=== PATIENT | male | born 1980 ===

== ENCOUNTER 2017-11-24 22:39 | Emergency (ER) | payer MEDICAID, OTHER ==
[2017-11-24 22:46] VITALS: PULSE 82; TEMP 98.2
[2017-11-24 23:40] LABS: BARBITURATES, UR NEGATIVE (NEGATIVE); BENZODIAZEPINES, UR NEGATIVE (NEGATIVE); OPIATES, UR NEGATIVE (NEGATIVE); PHENCYCLIDINE, UR NEGATIVE (NEGATIVE)
--- NOTE | 2017-11-25 00:52 | ED PDOC ---
HPI: Psych/Substance Abuse Time Seen by Provider: 11/24/17 22:50 Chief Complaint (Nursing): Alcohol Ingestion Chief Complaint (Provider): etoh intoxication ED Caveat: Intoxicated History Per: Patient History/Exam Limitations: intoxication Onset/Duration Of Symptoms: Unknown (because he is an unreliable historian) Additional History Per: Friend Additional Complaint(s): 37 yo male, in company of a friend, presents to the ED complaining of alcohol intoxication, onset unknown. Patient's friend quotes, "he passed out for 30 seconds after drinking alcohol". Patient's history and review of systems are limited secondary to the patient not being reliable historian because of his intoxication. Of note, patient has been seen in this ED for alcohol intoxication in the past. Past Medical History Reviewed: Historical Data, Nursing Documentation, Vital Signs, Unable To Obtain (patient is not a reliable historian) Vital Signs: Last Vital Signs Temp 98.2 F 11/24/17 22:41 Pulse 82 11/24/17 22:41 Resp 19 11/24/17 22:41 BP 142/79 11/24/17 22:41 Pulse Ox 99 11/24/17 22:41 - Family History Family History: States: Unknown Family Hx - Social History Ex-Smoker (has not smoked in the last 12 months): No - Allergies Allergies/Adverse Reactions: Allergies Allergy/AdvReac Type Severity Reaction Status Date / Time No Known Allergies Allergy Verified 06/27/15 04:18 Review of Systems ROS Statement: Except As Marked, All Systems Reviewed And Found Negative Review Of Systems: ROS cannot be obtained secondary to pt's inabilty to answer questions. (patient is intoxicated and not a reliable historian) Physical Exam - Reviewed Nursing Documentation Reviewed: Yes Vital Signs Reviewed: Yes - Physical Exam Appears: Positive for: Well, Non-toxic, No Acute Distress Head Exam: Positive for: ATRAUMATIC, NORMAL INSPECTION, NORMOCEPHALIC Skin: Positive for: Normal Color, Warm, DRY Eye Exam: Positive for: EOMI, Normal appearance, PERRL ENT: Positive for: Normal ENT Inspection Neck: Positive for: Normal, Painless ROM Cardiovascular/Chest: Positive for: Regular Rate, Rhythm. Negative for: Murmur Respiratory: Positive for: Normal Breath Sounds. Negative for: Respiratory Distress Gastrointestinal/Abdominal: Positive for: Normal Exam, Soft. Negative for: Tenderness Back: Positive for: Normal Inspection Extremity: Positive for: Normal ROM. Negative for: Pedal Edema, Deformity Neurologic/Psych: Positive for: Other (slurred speech). Negative for: Alert ( easily aroused), Oriented (oriented to person) - ECG O2 Sat by Pulse Oximetry: 99 (RA) Pulse Ox Interpretation: Normal Medical Decision Making Medical Decision Making: Time: --22:51 Impression: --37 yo male with alcohol intoxication Plan: --Accucheck Reassess --Labs reviewed and show an alcohol level of 43. Patient is Cannabis positive --00:30 patient reports of improvement of symptoms and is stable for discharge. Scribe Attestation: Documented by Darrian Claros acting as a scribe for Zan Pierce MD. Provider Attestation: All medical record entries made by the Scribe were at my direction and personally dictated by me. I have reviewed the chart and agree that the record accurately reflects my personal performance of the history, physical exam, medical decision making, and the department course for this patient. I have also personally directed, reviewed, and agree with the discharge instructions and disposition. Disposition - Clinical Impression Clinical Impression: Alcohol use, Cannabis abuse - Patient ED Disposition Is Patient to be Admitted: No - Disposition Disposition: Routine/Home Disposition Time: 00:30 Condition: IMPROVED Instructions: Alcohol Use - When Is Drinking a Problem?, Marijuana Use and Addiction Forms: [employer] (Serbian)
[2017-11-25 03:05] VITALS: BP 138/76; RESP 16
[2017-11-25 04:30] VITALS: O2SAT 99
== END 2017-11-25 03:06 | disposition home or self-care (01) ==
LOC: H.ER 22:39
DX: F10.129 Alcohol abuse with intoxication, unspecified (principal); F12.10 Cannabis abuse, uncomplicated

== ENCOUNTER 2017-12-22 12:20 | Inpatient (IN) | payer MEDICAID, SELFPAY ==
--- NOTE | 2017-12-22 13:09 | ED PDOC ---
HPI: Psych/Substance Abuse Time Seen by Provider: 12/22/17 12:45 Chief Complaint (Nursing): Psychiatric Evaluation Chief Complaint (Provider): Psychiatric Evaluation History Per: Patient History/Exam Limitations: no limitations Current Symptoms Are (Timing): Still Present Additional Complaint(s): 37 year old male presents to the emergency department for a psychiatric evaluation after experiencing suicidal and homicidal thoughts without a plan or intent. Patient has a long history of depression and has not taken any psychiatric medications since 2004. Denies any auditory hallucinations. Otherwise: (-) trauma, (-) fever, (-)headache, (-) dyspnea, (-) vomiting. Past Medical History Reviewed: Historical Data, Nursing Documentation, Vital Signs Vital Signs: Last Vital Signs Temp 97.7 F 12/22/17 12:26 Pulse 77 12/22/17 12:26 Resp 18 12/22/17 12:26 BP 109/73 12/22/17 12:26 Pulse Ox 100 12/22/17 12:26 - Medical History PMH: Depression - Family History Family History: States: Unknown Family Hx - Social History Current smoker - smoking cessation education provided: No Alcohol: Other Drugs: Denies - Allergies Allergies/Adverse Reactions: Allergies Allergy/AdvReac Type Severity Reaction Status Date / Time No Known Allergies Allergy Verified 06/27/15 04:18 Review of Systems ROS Statement: Except As Marked, All Systems Reviewed And Found Negative (As per HPI, otherwise negative) Psych: Positive for: Depression, Suicidal ideation (Homicidal). Negative for: Other (Auditory hallucinations) Physical Exam - Reviewed Nursing Documentation Reviewed: Yes Vital Signs Reviewed: Yes - Physical Exam Appears: Positive for: No Acute Distress Head Exam: Positive for: NORMAL INSPECTION (No scalp swelling or tenderness) Skin: Positive for: Warm, Dry. Negative for: Cyanosis Eye Exam: Positive for: Normal appearance, EOMI, PERRL. Negative for: Nystagmus , Scleral icterus, Other (conjunctival pallor) ENT: Positive for: Normal ENT Inspection (Mucous membranes moist) Neck: Positive for: Normal, Supple. Negative for: Pain On Movement Of Neck ( stiffness) Respiratory: Positive for: Normal Breath Sounds (Breaths sounds are equal). Negative for: Rales, Rhonchi, Stridor, Wheezing Gastrointestinal/Abdominal: Positive for: Normal Exam, Soft. Negative for: Tenderness, Distended, Guarding Lymphatic: Positive for: Normal Exam. Negative for: Adenopathy Neurologic/Psych: Positive for: Alert, cosmetologist II-XII (Intact), Oriented (x3), Mood/ Affect (Calm and cooperative) - Laboratory Results Result Diagrams: 12/22/17 14:16 12/22/17 14:16 - ECG O2 Sat by Pulse Oximetry: 100 (RA) Pulse Ox Interpretation: Normal Medical Decision Making Medical Decision Making: Time: 1245 Initial impression: Depression Initial plan: --Alcohol serum --CMP --Drug Screen, Urine --CBC w/ diff --Urinalysis --Reevaluation Time: 1345 --1:1 OBS for suicide precaution Labs reviewed and are wnl. Patient is medically cleared for crisis evaluation. Patient is seen and evaluated by crisis. As per crisis evaluation, decision made for inpatient admission for depression as per Dr. Joaquin. Scribe Attestation: Documented by Carol Sigala, acting as a scribe for Salina Mejia PA-C Provider Scribe Attestation: All medical record entries made by the Scribe were at my direction and personally dictated by me. I have reviewed the chart and agree that the record accurately reflects my personal performance of the history, physical exam, medical decision making, and the department course for this patient. I have also personally directed, reviewed, and agree with the discharge instructions and disposition. Disposition - Clinical Impression Clinical Impression: Depression - Patient ED Disposition Is Patient to be Admitted: Yes Counseled Patient/Family Regarding: Studies Performed, Diagnosis - Disposition Disposition Time: 17:00 Condition: STABLE Forms: [employer] (Azerbaijani) - PA / FILTER FILLER / Resident Statement MD/DO has reviewed & agrees with the documentation as recorded.
[2017-12-22 14:24] LABS: BASO % 0.7 % (0.0-2.0); EOS # 0.1 K/uL (0.0-0.7); EOS % 2.2 % (0.0-4.0); HEMOGLOBIN 15.4 g/dL (12.0-18.0); LYMPH # 1.4 K/uL (1.0-4.3); LYMPH % 27.5 % (20.0-40.0); MEAN CELL VOLUME 89.1 fl (80.0-94.0); MEAN CORPUSCULAR HEMOGLOBIN 29.2 pg (27.0-31.0); MEAN CORPUSCULAR HGB CONC 32.8 g/dL (33.0-37.0); MEAN PLATELET VOLUME 10.2 fl (7.2-11.7); MONO # 0.7 K/uL (0.0-0.8); MONO % 12.7 % (0.0-10.0); NEUT % 56.9 % (50.0-75.0); NRBC % 0.1 % (0.0-0.0); RBC 5.27 Mil/uL (4.40-5.90); RED CELL DISTRIBUTION WIDTH 13.8 % (11.5-14.5); WHITE BLOOD COUNT 5.2 K/uL (4.8-10.8)
[2017-12-22 14:37] LABS: ALB/GLOB RATIO 1.1 (1.0-2.1); ALBUMIN 4.4 g/dL (3.5-5.0); ALT/SGPT 36 U/L (21-72); AST/SGOT 31 U/L (17-59); BLOOD UREA NITROGEN 16 mg/dl (9-20); CALCIUM 9.4 mg/dL (8.4-10.2); GFR AFRICAN-AMERICAN > 60; GFR NON-AFRICAN AMERICAN > 60; URINE BILIRUBIN NEGATIVE (NEGATIVE); URINE BLOOD NEGATIVE (NEGATIVE); URINE CLARITY SLIGHTY-CLOUDY (Clear); URINE COLOR YELLOW (YELLOW); URINE GLUCOSE (UA) NEG (Normal); URINE LEUKOCYTE ESTERASE NEG Leu/uL (Negative); URINE PROTEIN 30 mg/dL (NEGATIVE)
[2017-12-22 14:43] LABS: BARBITURATES, UR NEGATIVE (NEGATIVE); BENZODIAZEPINES, UR NEGATIVE (NEGATIVE); OPIATES, UR NEGATIVE (NEGATIVE); PHENCYCLIDINE, UR NEGATIVE (NEGATIVE)
[2017-12-22] MEDS ORDERED: Divalproex 250 mg DR(BID formulation) PO ONE (19:16)
[2017-12-22] MEDS ORDERED: Magnesium Hydroxide Susp 30 ml UD PO PRN (20:03)
[2017-12-22] MEDS ORDERED: Alum-Mag Hydrox-Simethicone Susp (30 mL) PO PRN (20:03)
[2017-12-22] MEDS ORDERED: DiphenhydrAMINE 50 mg/ml Inj IM PRN (20:03)
[2017-12-22 21:58] VITALS: O2SAT 18
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
[2017-12-23] MEDS ORDERED: Divalproex 250 mg DR(BID formulation) PO SCH (09:00)
[2017-12-23 11:00] LABS: T4 6.76 ug/dl (5.5-11.0)
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
[2017-12-23] MEDS: Divalproex 500 mg DR(BID formulation) PO SCH ×2 (18:22→21:25)
[2017-12-24] MEDS: Divalproex 500 mg DR(BID formulation) PO SCH ×2 (08:42→17:56)
[2017-12-24 09:07] VITALS: RESP 18
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
[2017-12-25] MEDS: Divalproex 500 mg DR(BID formulation) PO SCH (09:09)
--- NOTE | 2017-12-25 13:38 | PCM.PYCHPN ---
Psychiatric Progress Note - Psychiatric Progress Note Patient seen today, length of contact: chart reviewed case discussed with team Patient Chief Complaint: I have been irritable and paranoid Problems Identified/Issues Discussed: pt evaluated with treatment team, reported feeling calmer and less angry since he was started on the depakote, pt also having insight into the fact that he was paranoid towards staff members,discussed with him the possible contribution of cannabis to the paranoid delusions also discussed with pt the need to be linked to anger management therapy pt denied any current side effects of risperidone or depakote, compliant with treatment advised to attend groups, pt denied any current suicidal or homicidal ideations denied command hallucinations DSM 5 Symptoms Update: antisocial personality disorder bipolar disorder cannabis use disorder Medication Change: Yes (increase depakote) Medical Record Reviewed: Yes Mental Status Examination - Cognitive Function Orientation: Person, Place, Situation, Time Attention: WNL Concentration: WNL Association: WNL Fund of Knowledge: WN - Mood Mood: Depressed, Anxious - Affect Affect: Constricted - Speech Speech: Loud, Pressured - Formal Thought Process Formal Thought Process: Paranoia, Circumstantial Psychotic Thoughts and Behaviors: delusions of persecution - Suicidal Ideation Suicidal Ideation: No - Homicidal Ideation Homicidal Ideation: No Goal/Treatment Plan - Goal/Treatment Plan Need for Continued Stay: Discharge may exacerbated symptoms, Severe functional impairment Progress Toward Problem(s) and Goals/Treatment Plan: depakote 500mg qam and 750mg qhs risperidone 1mg qhs trazodone 100mg qhs CBT , group and supportive therapy Estimated Date of D/C: 12/28/17
[2017-12-25] MEDS: Divalproex 250 mg DR(BID formulation) PO SCH (21:26)
[2017-12-26] MEDS: Divalproex 500 mg DR(BID formulation) PO SCH (08:33)
--- NOTE | 2017-12-26 15:31 | PCM.PYCHPN ---
Psychiatric Progress Note - Psychiatric Progress Note Patient seen today, length of contact: chart reviewed case discussed with team Patient Chief Complaint: I feel better with the medications Problems Identified/Issues Discussed: pt evaluated , calmer, more cooperative, compliant with treatment , attending groups no reported side effects of medications,discussed with pt referral to Er[facility] mora on discharge, pt agreed pt denied any current suicidal or homicidal ideations denied command hallucinations DSM 5 Symptoms Update: bipolar disorder cannabis use disorder Medication Change: No Medical Record Reviewed: Yes Mental Status Examination - Cognitive Function Orientation: Person, Place, Situation, Time Attention: WNL Concentration: WNL Association: WNL Fund of Knowledge: WNL - Mood Mood: Neutral - Affect Affect: Constricted - Speech Speech: Appropriate, Pressured - Formal Thought Process Formal Thought Process: Paranoia, Circumstantial Psychotic Thoughts and Behaviors: pt reported clearing off of the paranoid delusions - Suicidal Ideation Suicidal Ideation: No - Homicidal Ideation Homicidal Ideation: No Goal/Treatment Plan - Goal/Treatment Plan Need for Continued Stay: Discharge may exacerbated symptoms, Severe functional impairment Progress Toward Problem(s) and Goals/Treatment Plan: depakote 500mg qam and 750mg qhs risperidone 1mg qhs trazodone 100mg qhs CBT , group and supportive therapy Estimated Date of D/C: 12/28/17
[2017-12-26 17:41] VITALS: TEMP 97.5
[2017-12-26] MEDS: Divalproex 250 mg DR(BID formulation) PO SCH (21:09)
[2017-12-27] MEDS: Divalproex 500 mg DR(BID formulation) PO SCH (08:55)
[2017-12-27 09:05] VITALS: BP 136/75; PULSE 66
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
== END 2017-12-27 11:50 | disposition home or self-care (01) | DRG 430 ==
LOC: H.ER 12:20 → H.ERHOLD 17:41 → H.PSYCH 19:09
PROVIDERS: ADMIT Psychiatry & Neurology Psychiatry; ATTEND Psychiatry & Neurology Psychiatry
PROC: GZ51ZZZ Individual Psychotherapy, Behavioral (ICD-10-PCS; 2017-12-22)
PROC: GZHZZZZ Group Psychotherapy (ICD-10-PCS; principal; 2017-12-24)
DX: F31.9 Bipolar disorder, unspecified (principal); R45.850 Homicidal ideations; R45.851 Suicidal ideations; F60.2 Antisocial personality disorder; Z81.8 Family history of other mental and behavioral disorders; F91.9 Conduct disorder, unspecified; F12.90 Cannabis use, unspecified, uncomplicated

== ENCOUNTER 2018-01-01 10:29 | Inpatient (IN) | payer MEDICAID, SELFPAY ==
[2018-01-01 10:50] VITALS: O2SAT 100
--- NOTE | 2018-01-01 12:12 | ED PDOC ---
HPI: Psych/Substance Abuse Time Seen by Provider: 01/01/18 10:59 Chief Complaint (Nursing): Psychiatric Evaluation Chief Complaint (Provider): crisis evaluation History/Exam Limitations: clinical condition Onset/Duration Of Symptoms: Gradual Current Symptoms Are (Timing): Still Present Modifying Factor(s): None Severity: Severe Associated Symptoms: Agitation, Depression, Paranoia, Suicidal Thoughts Involuntary Hold By: Emergency Physician Additional History Per: Patient, Prior Records Additional Complaint(s): 37yo male recently discharged from psychiatric unit represents with c/o paranoia , suicidal and homicidal thoughts, sleeplessness and sensation of things crawling on his skin. Denies drug or alcohol use. Denies taking any medications currently. He is unaware of his psychiatric diagnosis. Past Medical History Reviewed: Historical Data, Nursing Documentation, Vital Signs Vital Signs: Last Vital Signs Temp 98.3 F 01/01/18 10:50 Pulse 71 01/01/18 10:50 Resp 19 01/01/18 10:50 BP 132/85 01/01/18 10:50 Pulse Ox 100 01/01/18 10:50 - Medical History PMH: Depression Denies: Diabetes, Hepatitis, HIV, HTN, Chronic Kidney Disease, Seizures, Sexually Transmitted Disease - Family History Family History: States: Unknown Family Hx - Living Arrangements Living Arrangements: Other - Social History Current smoker - smoking cessation education provided: Yes Alcohol: None Drugs: Denies - Home Medications Home Medications: Ambulatory Orders Medication Instructions Recorded Divalproex [Depakote DR(*BID*)] 500 mg PO DAILY 30 Days #30 tcp 12/27/17 Divalproex [Depakote DR(*BID*)] 750 mg PO HS 30 Days #90 tcp 12/27/17 Triamcinolone 0.1% [Kenalog 0.1% 1 appl TOP BID 7 Days #1 tube 12/27/17 Oint] risperiDONE [RisperDAL Tab] 1 mg PO HS 30 Days #30 tab 12/27/17 traZODone [Desyrel] 100 mg PO HS 30 Days #30 tab 12/27/17 - Allergies Allergies/Adverse Reactions: Allergies Allergy/AdvReac Type Severity Reaction Status Date / Time No Known Allergies Allergy Verified 06/27/15 04:18 Review of Systems Constitutional: Negative for: Fever, Chills Cardiovascular: Negative for: Chest Pain, Palpitations Gastrointestinal: Negative for: Abdominal Pain Genitourinary Male: Negative for: Dysuria, Frequency Musculoskeletal: Negative for: Neck Pain, Back Pain Skin: Negative for: Rash Neurological: Negative for: Weakness, Numbness, Change in Speech, Dizziness Psych: Positive for: Anxiety, Depression, Suicidal ideation Physical Exam - Reviewed Nursing Documentation Reviewed: Yes Vital Signs Reviewed: Yes - Physical Exam Appears: Positive for: Non-toxic (pressured speech poor eye contact), No Acute Distress Head Exam: Positive for: ATRAUMATIC, NORMAL INSPECTION, NORMOCEPHALIC Skin: Positive for: Normal Color, Warm, DRY Eye Exam: Positive for: EOMI, Normal appearance, PERRL ENT: Positive for: Normal ENT Inspection Neck: Positive for: Normal, Painless ROM Cardiovascular/Chest: Positive for: Regular Rate, Rhythm Respiratory: Positive for: CNT, Normal Breath Sounds Gastrointestinal/Abdominal: Positive for: Normal Exam, Bowel Sounds, Soft Back: Positive for: Normal Inspection Extremity: Positive for: Normal ROM Neurologic/Psych: Positive for: Alert, Oriented, Mood/Affect (poor insight, labile). Negative for: Motor/Sensory Deficits, Facial Droop - Laboratory Results Result Diagrams: 01/01/18 12:41 01/02/18 06:00 - ECG ECG: Positive for: Interpreted By Nm ECG Rhythm: Positive for: Normal ST Segment, Sinus Rhythm. Negative for: ST/T Changes O2 Sat by Pulse Oximetry: 100 Pulse Ox Interpretation: Normal - Radiology X-Ray: Interpreted by Nm X-Ray Interpretation: No Acute Disease Medical Decision Making Medical Decision Making: placed 1:1 labs unremarkable Toxicology Acetaminophen < 10.0 ug/ml [low] Urine Toxicology (+) U Cannabinoids Screen medically stable for 3N admission at time of evaluation Scribe Attestation: Documented by Zane Lopez, acting as a scribe for Cy Santoro III DO Disposition - Clinical Impression Clinical Impression: Moderate major depression, Poor impulse control - Patient ED Disposition Is Patient to be Admitted: Yes - Disposition Disposition Time: 13:01 Condition: GUARDED - Pt Status Changed To: Hospital Disposition Of: Inpatient - Admit Certification Admit to Inpatient:: After my assessment, the patient will require hospitalization for at least two midnights. This is because of the severity of symptoms shown, intensity of services needed, and/or the medical risk in this patient being treated as an outpatient. - POA Present On Arrival: None
[2018-01-01 12:45] LABS: BASO % 0.5 % (0.0-2.0); EOS # 0.1 K/uL (0.0-0.7); EOS % 1.5 % (0.0-4.0); HEMOGLOBIN 15.5 g/dL (12.0-18.0); LYMPH # 1.6 K/uL (1.0-4.3); MEAN CELL VOLUME 88.6 fl (80.0-94.0); MEAN CORPUSCULAR HEMOGLOBIN 29.8 pg (27.0-31.0); MEAN CORPUSCULAR HGB CONC 33.6 g/dL (33.0-37.0); MEAN PLATELET VOLUME 9.2 fl (7.2-11.7); MONO # 0.8 K/uL (0.0-0.8); MONO % 9.7 % (0.0-10.0); NEUT # 5.2 K/uL (1.8-7.0); NEUT % 67.3 % (50.0-75.0); NRBC % 0.1 % (0.0-0.0); RBC 5.21 Mil/uL (4.40-5.90); RED CELL DISTRIBUTION WIDTH 13.7 % (11.5-14.5); WHITE BLOOD COUNT 7.8 K/uL (4.8-10.8)
[2018-01-01 12:57] LABS: SQUAMOUS EPITHIAL < 1 /hpf (0-5); URINE BILIRUBIN NEGATIVE (NEGATIVE); URINE BLOOD NEGATIVE (NEGATIVE); URINE CLARITY SLIGHTY-CLOUDY (Clear); URINE COLOR YELLOW (YELLOW); URINE GLUCOSE (UA) NEG (Normal); URINE LEUKOCYTE ESTERASE NEG Leu/uL (Negative); URINE PROTEIN NEGATIVE (NEGATIVE); URINE UROBILINOGEN 0.2-1.0 mg/dL (0.2-1.0)
[2018-01-01 13:00] LABS: ACETAMINOPHEN < 10.0 ug/ml (10.0-30.0); ALB/GLOB RATIO 1.2 (1.0-2.1); ALBUMIN 4.4 g/dL (3.5-5.0); ALT/SGPT 44 U/L (21-72); AST/SGOT 31 U/L (17-59); BLOOD UREA NITROGEN 16 mg/dl (9-20); CALCIUM 9.4 mg/dL (8.4-10.2); GFR AFRICAN-AMERICAN > 60; GFR NON-AFRICAN AMERICAN > 60; SALICYLATE < 1.0 mg/dl
[2018-01-01 13:10] LABS: BARBITURATES, UR NEGATIVE (NEGATIVE); BENZODIAZEPINES, UR NEGATIVE (NEGATIVE); OPIATES, UR NEGATIVE (NEGATIVE); PHENCYCLIDINE, UR NEGATIVE (NEGATIVE)
--- NOTE | 2018-01-01 14:25 | RAD ---
HISTORY: SOB COMPARISON: No prior. FINDINGS: LUNGS: No active pulmonary disease. PLEURA: No significant pleural effusion identified, no pneumothorax apparent. CARDIOVASCULAR: Normal. OSSEOUS STRUCTURES: No significant abnormalities. VISUALIZED UPPER ABDOMEN: Normal. OTHER FINDINGS: None. IMPRESSION: No active disease.
--- NOTE | 2018-01-01 17:36 | PCM.BM ---
<Shannan James - Last Filed: 01/01/18 17:31> Treatment Plan Problems - Problems identified on initial assessmt Feelings of Worthlessness Date Initiated: 01/01/18 Time Initiated: 17:32 Assessment reference: NA Status: Active Treatment assets and liabiliti Patient Assests: cooperative, resourceful, self-reliant, ADL independent, physically healthy, negotiates basic needs, cognitively intact Patient Liabilities: poor support system, relationship conflicts, substance abuse - Milieu Protocol Maintain good personal hygiene: daily Encourage regular showers, every shift Remind patient to perform daily oral care, every shift Assist patient to perform ADL's Conduct patient checks and document Observation sheet: Q15 minutes Maintain personal safety: every shift Educate patient to report safety concerns to staff, every shift Monitor environment for contraband/sharps Medication safety: Monitor for expected outcome, potential side effects: every shift, Assess barriers to learning: every shift, Assess readiness for medication education: every shift <ArlynElvia - Last Filed: 01/03/18 15:45> Treatment assets and liabiliti Patient Assests: adapts well, cooperative, resourceful, self-reliant, ADL independent, physically healthy, negotiates basic needs, cognitively intact Patient Liabilities: poor support system, relationship conflicts, substance abuse Family Contact Family involvement: Famliy/SO not involved Family contact: Patient declines to allow family contact at present - Goals for Treatment Patient goals for treatment: Patient to continue stabilization on 3NP through medication management and group/supportive therapy. Patient to be encouraged to attend groups regularly to promote self-awareness,compliance, sobriety, and improve insight, coping skills and self-esteem. Patient to be provided with referral for appropriate level of aftercare to reduce risk of future hospitalizations and ensure safety in the community. Discharge/Continuing Care - Education Needs Education Needs: Patient Medication, Patient Coping Skills, Patient Anger Management skills, Patient Community resources, Patient Aftercare Safety Plan - Discharge Discharge Criteria: Tolerates medication w/o severe side effects, Free of Suicidal thoughts, Free of Homicidal thoughts, Free of paranoid thoughts, Free of agitation, Normal sleep pattern, Ability to care for self, Reduction of target symptoms Discharge to:: Alf - Treatment Team Participation Patient/Family/SO Statement: 01/03/18 15:50 Pt. was brought into tx team this morning to discuss progress on 3NP and aftercare. Pt. requested to have 1:1 discontinued, expressing that it was worsening sxs of paranoia. Pt. denies SI/HI and is able to contract for safety. 1:1 discontinued. Pt. reports improvement in paranoia and anxiety today. Pt. continues to report broken sleep. Pt. denies current AH/VH. Pt. in good behavioral control today and was made aware of staff availability if AH/ paranoia worsen. Importance of staff/patient safety emphasized. Aftercare options discussed at length. Pt. agreeable to [facility]. Pt. anticipated for discharge on 01/05. Discussed with Family/SO: No Was Patient/Family/SO present at Treatment Team Meeting: Yes <Adri Palomo - Last Filed: 01/05/18 12:35> - Diagnosis (1) Poor impulse control Status: Acute Interventions: CBT, pharmacotherapy 01/05/18 12:35
[2018-01-01] MEDS ORDERED: Magnesium Hydroxide Susp 30 ml UD PO PRN (17:47)
[2018-01-01] MEDS ORDERED: DiphenhydrAMINE 50 mg/ml Inj IM PRN (17:47)
[2018-01-01] MEDS ORDERED: Alum-Mag Hydrox-Simethicone Susp (30 mL) PO PRN (17:47)
[2018-01-02 06:56] LABS: ALB/GLOB RATIO 1.1 (1.0-2.1); ALBUMIN 3.8 g/dL (3.5-5.0); ALT/SGPT 39 U/L (21-72); AST/SGOT 24 U/L (17-59); BLOOD UREA NITROGEN 17 mg/dl (9-20); GFR AFRICAN-AMERICAN > 60; GFR NON-AFRICAN AMERICAN > 60; HDL CHOLESTEROL 34 MG/DL (30-70)
[2018-01-02 07:00] LABS: LDL CHOLESTEROL 101 mg/dL (0-129)
[2018-01-02 07:08] LABS: T4 6.45 ug/dl (5.5-11.0)
[2018-01-02 07:22] LABS: T3 1.04 nmol/L (1.49-2.60)
[2018-01-02] MEDS ORDERED: Divalproex 500 mg DR(BID formulation) PO STA (10:58)
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
--- NOTE | 2018-01-02 11:46 | CARD ---
APPROVED REPORT EKG Measurement Heart [id number] <Conclusion> Normal sinus rhythm Normal ECG
[2018-01-02] MEDS: Divalproex 500 mg DR(BID formulation) PO SCH (18:00)
[2018-01-02 18:11] VITALS: RESP 18
[2018-01-03] MEDS: Divalproex 500 mg DR(BID formulation) PO SCH ×2 (09:11→17:38)
[2018-01-03] MEDS: Risperidone M TAB 2 MG PO SCH (09:12)
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
[2018-01-04] MEDS: Risperidone M TAB 2 MG PO SCH (09:09)
[2018-01-04] MEDS: Divalproex 500 mg DR(BID formulation) PO SCH ×2 (09:09→17:55)
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
[2018-01-05] MEDS: Divalproex 500 mg DR(BID formulation) PO SCH (08:40)
[2018-01-05] MEDS: Risperidone M TAB 2 MG PO SCH (08:40)
[2018-01-05 09:06] VITALS: BP 130/78; PULSE 71; TEMP 97
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
== END 2018-01-05 14:42 | disposition home or self-care (01) | DRG 748 ==
LOC: H.ER 10:29 → SUPCPDRO 10:29 → H.PSYCH 13:33
PROVIDERS: ADMIT Psychiatry & Neurology Psychiatry; ATTEND Psychiatry & Neurology Psychiatry
PROC: HZ52ZZZ Individual Psychotherapy for Substance Abuse Treatment, Cognitive-Behavioral (ICD-10-PCS; principal; 2018-01-01)
PROC: HZ59ZZZ Individual Psychotherapy for Substance Abuse Treatment, Supportive (ICD-10-PCS; 2018-01-01)
PROC: HZ57ZZZ Individual Psychotherapy for Substance Abuse Treatment, Motivational Enhancement (ICD-10-PCS; 2018-01-01)
PROC: GZHZZZZ Group Psychotherapy (ICD-10-PCS; 2018-01-01)
DX: F12.950 Cannabis use, unspecified with psychotic disorder with delusions (principal); F12.951 Cannabis use, unspecified with psychotic disorder with hallucinations; F60.2 Antisocial personality disorder; R45.850 Homicidal ideations; R45.851 Suicidal ideations; Z59.0 Homelessness; F17.200 Nicotine dependence, unspecified, uncomplicated; F31.9 Bipolar disorder, unspecified; Z91.14 Patient's other noncompliance with medication regimen

== ENCOUNTER 2018-04-14 16:55 | Emergency (ER) | payer MEDICAID, SELFPAY ==
[2018-04-14 17:14] VITALS: RESP 18
--- NOTE | 2018-04-14 17:47 | ED PDOC ---
HPI: Back Time Seen by Provider: 04/14/18 17:26 Chief Complaint (Nursing): Back Pain Chief Complaint (Provider): back pain History Per: Patient History/Exam Limitations: no limitations Onset/Duration Of Symptoms: Days Quality Of Discomfort: "Pain" Exacerbating Factor(s): Movement Additional Complaint(s): 37 year old male presents to the ED for an evaluation of lower back pain. Reports the pain is worse with movement, standing or walking. States pain started after lifting a package of food and he almost fell but he caught himself. He felt mild pain afterwards. Currently, patient stays in a [facility]pc and was sleeping on the floor last night and it has worsened. Otherwise: (-) fever, (-) trauma, (-) injury, (-) paresthesias, (-) weakness, (-) acute bowel or bladder dysfunction, (-) fever. PMD: Non H Provider Past Medical History Reviewed: Historical Data, Nursing Documentation, Vital Signs Vital Signs: Last Vital Signs Temp 98.6 F 04/14/18 17:13 Pulse 76 04/14/18 17:13 Resp 18 04/14/18 17:13 BP 131/84 04/14/18 17:13 Pulse Ox 98 04/14/18 17:13 - Medical History PMH: Depression Denies: Diabetes, Hepatitis, HIV, HTN, Chronic Kidney Disease, Seizures, Sexually Transmitted Disease - Family History Family History: States: Unknown Family Hx - Home Medications Home Medications: Ambulatory Orders Medication Instructions Recorded Triamcinolone 0.1% [Kenalog 0.1% 1 appl TOP BID 7 Days #1 tube 12/27/17 Oint] Divalproex [Depakote DR(*BID*)] 500 mg PO BID 30 Days #60 tcp 01/05/18 risperiDONE [RisperDAL Tab] 2 mg PO BID 30 Days #60 tab 01/05/18 Cyclobenzaprine [Cyclobenzaprine 10 mg PO TID PRN #15 tab 04/14/18 HCl] Naproxen 500 mg PO BID #30 tab 04/14/18 - Allergies Allergies/Adverse Reactions: Allergies Allergy/AdvReac Type Severity Reaction Status Date / Time shellfish Allergy RASH Uncoded 04/14/18 17:20 Review of Systems ROS Statement: Except As Marked, All Systems Reviewed And Found Negative Constitutional: Negative for: Fever, Weakness, Other (trauma) Musculoskeletal: Positive for: Back Pain Physical Exam - Reviewed Nursing Documentation Reviewed: Yes Vital Signs Reviewed: Yes - Physical Exam Comments: GENERAL APPEARANCE: Patient is awake, alert, oriented x 3, in mild painful distress. SKIN: Warm, dry; (-) cyanosis. EYES: (-) conjunctival pallor. ENMT: Mucous membranes moist. NECK: (-) tenderness, (-) stiffness, (-) lymphadenopathy. CHEST AND RESPIRATORY: (-) rales, (-) rhonchi, (-) wheezes; breath sounds equal bilaterally. HEART AND CARDIOVASCULAR: (-) irregularity; (-) murmur, (-) gallop. ABDOMEN AND GI: Soft; (-) tenderness; (-) palpable mass. BACK: (+) paralumbar tenderness, (+) mild spasm, (-) direct bony tenderness, (- ) deformity. EXTREMITIES: (-) deformity. Distal pulses good bilaterally. NEURO AND PSYCH: Mental status as above. Intact sensation bilaterally; normal strength in extension of the knees, plantar and dorsiflexion of the toes. - ECG O2 Sat by Pulse Oximetry: 98 (RA) Pulse Ox Interpretation: Normal Medical Decision Making Medical Decision Making: Time: 1744 Initial Impression: lumbar strain Initial Plan: --Flexeril 10mg PO --Toradol 60mg IM Advised to follow up with the clinic in 1-2 days without fail. Advised to take medication as prescribed. Return to the emergency room at any time for any new or worsening symptoms. Patient states he fully agrees with and understands discharge instructions. States that he agrees with the plan and disposition. Verbalized and repeated discharge instructions and plan. I have given the patient opportunity to ask any additional questions. Scribe Attestation: Documented by Neeraj Mao, acting as a scribe for Salina Mejia PA-C Provider Scribe Attestation: All medical record entries made by the Scribe were at my direction and personally dictated by me. I have reviewed the chart and agree that the record accurately reflects my personal performance of the history, physical exam, medical decision making, and the department course for this patient. I have also personally directed, reviewed, and agree with the discharge instructions and disposition. Disposition - Clinical Impression Clinical Impression: Low back pain - Patient ED Disposition Is Patient to be Admitted: No Counseled Patient/Family Regarding: Diagnosis, Need For Followup, Rx Given - Disposition Referrals: [facility] [Outside] Disposition: Routine/Home Disposition Time: 18:00 Condition: STABLE Additional Instructions: Thank you for letting us take care of you today. You were treated for low back pain. The emergency medical care you received today was directed at your acute symptoms. If you were prescribed any medication, please fill it and take as directed. It may take several days for your symptoms to resolve. Return to the Emergency Department if your symptoms worsen, do not improve, or if you have any other problems. Please call one of the physicians/clinics you have been referred to that are listed on the Patient Visit Information form that is included in your discharge packet. Bring any paperwork you were given at discharge with you along with any medications you are taking to your follow up visit. Our treatment cannot replace ongoing medical care by a primary care provider (PCP) outside of the emergency department. Thank you [facility] to [facility] of your care today. Prescriptions: Cyclobenzaprine [Cyclobenzaprine HCl] 10 mg PO TID PRN #15 tab PRN Reason: Muscle Spasm Naproxen 500 mg PO BID #30 tab Instructions: Low Back Pain (DC) Forms: [facility] [employer] ([place]), [facility] ED School/Work Excuse
[2018-04-14 19:22] VITALS: BP 122/78; PULSE 78; TEMP 98.1
[2018-04-14 21:03] VITALS: O2SAT 98
== END 2018-04-14 19:22 | disposition home or self-care (01) ==
LOC: H.ER 16:55
DX: M54.5 Low back pain (principal)
CPT/HCPCS: 96372; 99283; J1885

== ENCOUNTER 2018-04-26 09:07 | Emergency (ER) | payer MEDICAID ==
--- NOTE | 2018-04-26 09:47 | ED PDOC ---
HPI: Back Chief Complaint (Provider): Low back pain History Per: Patient History/Exam Limitations: no limitations Onset/Duration Of Symptoms: Days Current Symptoms Are (Timing): Still Present Quality Of Discomfort: Sharp, Aching Severity: Moderate Pain Scale Rating Of: 7 Previous Symptoms: Back Pain Exacerbating Factor(s): Turning, Sitting, Standing Additional Complaint(s): 38 year old male with PMHx of depression was evaluated for lower back pain. Patient reports that the pain started about 2 weeks ago after lifting a package of food. 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 States that he has been taking his muscle relaxers at home but it has not been helping with the pain. Patient states that he is not able to walk properly and feels like he is walking like an "old man". States that the pain is localized and is made worst with different motions. Patient denies of any numbness, tingling, or burning to bilateral LE. Patient also denies of any urinary incontinence or bowel dysfunction. Patient grades his pain as 7/10 on VAS today. Reports that it was 10/10 yesterday. States that he has not been doing any stretching exercises. Currently, patient stays in [place] [facility] and sleeps on the floor which makes his condition worst. Xvp2par of recent F/N/V/C/ SOB/CP/headache. Denies of any other complains at this time. <Darby Weems - Last Filed: 04/26/18 10:54> <Antonette Malin - Last Filed: 04/26/18 11:36> Time Seen by Provider: 04/26/18 09:16 Chief Complaint (Nursing): Back Pain Past Medical History Reviewed: Historical Data Vital Signs: Last Vital Signs Temp 98.2 F 04/26/18 09:12 Pulse 86 04/26/18 09:12 Resp 17 04/26/18 09:12 BP 115/73 04/26/18 09:12 Pulse Ox 99 04/26/18 09:12 - Medical History PMH: Depression Denies: Diabetes, Hepatitis, HIV, HTN, Chronic Kidney Disease, Seizures, Sexually Transmitted Disease - Family History Family History: States: Unknown Family Hx <Darby Weems - Last Filed: 04/26/18 10:54> Reviewed: Historical Data, Nursing Documentation, Vital Signs Vital Signs: Last Vital Signs Temp 98.2 F 04/26/18 09:12 Pulse 86 04/26/18 09:12 Resp 17 04/26/18 09:12 BP 115/73 04/26/18 09:12 Pulse Ox 99 04/26/18 09:50 - Surgical History Surgical History: No Surg Hx <ErikAntonette melgar - Last Filed: 04/26/18 11:36> - Home Medications Home Medications: Ambulatory Orders Medication Instructions Recorded Triamcinolone 0.1% [Kenalog 0.1% 1 appl TOP BID 7 Days #1 tube 12/27/17 Oint] Divalproex [Depakote DR(*BID*)] 500 mg PO BID 30 Days #60 tcp 01/05/18 risperiDONE [RisperDAL Tab] 2 mg PO BID 30 Days #60 tab 01/05/18 Cyclobenzaprine [Cyclobenzaprine 10 mg PO TID PRN #15 tab 04/14/18 HCl] Naproxen 500 mg PO BID #30 tab 04/14/18 Lidocaine 1 each TP DAILY #10 adh..patch 04/26/18 - Allergies Allergies/Adverse Reactions: Allergies Allergy/AdvReac Type Severity Reaction Status Date / Time shellfish Allergy RASH Uncoded 04/14/18 17:20 Supervising Attending Note - Supervising Attending Note The Documented history was done by the: Physician Customs Port Director, Attending Physician The documented physical exam was done by the: Physician Customs Port Director, Attending Physician The documented procedures were done by the: Physician Customs Port Director, Attending Physician - Attestation: I have personally seen and examined this patient.: Yes I have fully participated in the care of the patient.: Yes I have reviewed all pertinent clinical information: Yes <Antonette Malin - Last Filed: 04/26/18 11:36> Review of Systems Constitutional: Negative for: Fever, Chills, Weakness Eyes: Negative for: Pain ENT: Negative for: Ear Pain Cardiovascular: Negative for: Chest Pain, Palpitations Respiratory: Negative for: Cough, Shortness of Breath Gastrointestinal: Negative for: Nausea, Vomiting, Abdominal Pain, Diarrhea Genitourinary Male: Negative for: Frequency, Incontinence Musculoskeletal: Positive for: Back Pain <Darby Weems - Last Filed: 07/26/18 10:54> ROS Statement: Except As Marked, All Systems Reviewed And Found Negative <Antonette Malin - Last Filed: 04/26/18 11:36> Physical Exam - Physical Exam Appears: Positive for: Well, Non-toxic, No Acute Distress Head Exam: Positive for: ATRAUMATIC Skin: Positive for: Normal Color Eye Exam: Positive for: Normal appearance Neck: Positive for: Normal Back: Positive for: Vertebral Tenderness, Decreased ROM Extremity: Positive for: Normal ROM <Darby Weems - Last Filed: 04/26/18 10:54> - ECG O2 Sat by Pulse Oximetry: 99 <Harpreet Weemsmatildegloria - Last Filed: 04/26/18 10:54> Disposition <Harpreet Weemsmatildegloria - Last Filed: 04/26/18 10:54> - Patient ED Disposition Is Patient to be Admitted: No Doctor Will See Patient In The: Office Counseled Patient/Family Regarding: Studies Performed, Diagnosis, Need For Followup - Disposition Disposition: Routine/Home Disposition Time: 09:59 <Antonette Malin - Last Filed: 04/26/18 11:36> - Clinical Impression Clinical Impression: Back pain - Disposition Referrals: [facility] [Outside] Condition: GOOD Additional Instructions: Rest from work often. Wear abdominal binder while working. Take your medications as instructed. Avoid lifting at work. Change type of work you are doing if possible. Follow up with your PCP in 4-5 days. Prescriptions: Lidocaine 1 each TP DAILY #10 adh..patch Instructions: Low Back Pain in Adults, Back Exercises Forms: [facility] ED School/Work Excuse
[2018-04-26 10:22] VITALS: BP 117/68; PULSE 84; RESP 16; TEMP 98.1
[2018-04-26 10:54] VITALS: O2SAT 99
== END 2018-04-26 10:20 | disposition home or self-care (01) ==
LOC: H.ER 09:07
DX: M54.9 Dorsalgia, unspecified (principal); F32.9 Major depressive disorder, single episode, unspecified